=== PATIENT | female | born 1940 | race Caucasian/White ===

== ENCOUNTER 2019-11-17 06:30 | Inpatient (IN) | payer OTHER ==
[2019-11-12 10:18] VITALS: BMI 28.3
[~2019-11-17 06:30] MED LIST: CEFAZOLIN 2 GM in DEXTROSE 5%-WATER - 50 ML IVPB ONE; TRANEXAMIC ACID 1000 MG/10 ML VIAL IVPUSH ONE; VANCOMYCIN 1,000 MG in DEXTROSE 5%-WATER - 250 ML IVPB ONE
[2019-11-17] MEDS ORDERED: BUPIVACAINE LIPOSOME/PF (EXPAREL) 266 MG/20 ML VIAL ONE (07:02)
[2019-11-17] MEDS ORDERED: MIDAZOLAM HCL 2 MG/2 ML SINGLE DOSE VIAL ONE ×2 (07:02→07:39)
[2019-11-17] MEDS ORDERED: SODIUM CHLORIDE 0.9% P/F 10 ML VIAL IJ ONE (07:02)
--- NOTE | 2019-11-17 07:31 | HP ---
History & Physical Update - History History: No Change - Physical Physical: No Change - Assessment Assessment: No Change - Plan Plan: No Change (no changes since visit on 11/03/19)
[2019-11-17] MEDS ORDERED: DEXAMETHASONE SOD PHOSPHATE 4 MG/1 ML VIAL ONE (07:36)
[2019-11-17] MEDS ORDERED: ceFAZolin SODIUM 1 GM VIAL ONE ×2 (07:36→10:18)
[2019-11-17] MEDS ORDERED: ONDANSETRON 4 MG/2 ML VIAL ONE (07:36)
[2019-11-17] MEDS ORDERED: PROPOFOL 20 ML ONE ×3 (07:37→10:17)
[2019-11-17] MEDS ORDERED: VANCOMYCIN 1,000 MG VIAL (RESTRICTED TO ID ONLY) ONE (08:36)
[2019-11-17] MEDS ORDERED: TRANEXAMIC ACID 1000 MG/10 ML VIAL ONE (10:18)
[2019-11-17] MEDS ORDERED: BENZOIN/ALOE VERA/STORAX/TOLU 58 ML BOTTLE ONE (10:20)
[2019-11-17] MEDS ORDERED: MAGNESIUM HYDROX 2400MG/30ML ORAL SUSPENSION 30 ML CUP PO PRN (11:27)
[2019-11-17] MEDS ORDERED: MAG HYDROX/AL HYDROX/SIMETH 30 ML UNIT-DOSE CUP PO PRN (11:27)
[2019-11-17] MEDS ORDERED: ONDANSETRON 4 MG/2 ML VIAL IVPUSH PRN (11:27)
[2019-11-17] MEDS ORDERED: LACTATED RINGERS SOLUTION 1,000 ML IV SCH (11:30)
--- NOTE | 2019-11-17 11:32 | PN ---
Progress Note (short form) - Note Progress Note: 79F s/p LEFT total knee replacement POD #0. -Pain control: per anaesthesia team. -DVT PPx: -Chemical: ASA 81mg PO BID x 6 weeks. -Mechanical: ELBA's, SCD's. -Incentive spirometry q15 min. -PT/OT/Rehab, OOB. -WBAT LLE. -Post-op Ancef x 3 doses. -f/u post-op TOV: 8 hours max. -f/u AM labs. -Diet as tolerated. -Care per medical hospitalist team. -Discharge planning: f/u [facility] [place] [facility] 11/26/2019; call for appointment . -Will follow. Freddy Najera MD (Orthopaedic Surgery).
--- NOTE | 2019-11-17 11:34 | OP ---
Operative Note - Note: Operative Date: 11/17/19 Pre-Operative Diagnosis: Left knee DJD Operation: Left TKA Implants: Lily Triathlon. Femur - 2. Tibia - 3. Poly - 19mm, TS. Patella - 27mm, symmetric Post-Operative Diagnosis: Same as Pre-op Surgeon: Freddy Najera Melangeur Operator: Juan J Najera Anesthesiologist/SYSTEMS TEST ANALYST: Eladia El Anesthesia: Spinal Specimens Removed: Bone, soft tissue Estimated Blood Loss (mls): 0 Drains & Tubes with Location: 1 x deep HemoVac Fluid Volume Replaced (mls): 1,800 (Crystalloid) Operative Report Dictated: Yes
[2019-11-17] MEDS ORDERED: ACETAMINOPHEN 325 MG TABLET (FP) PO ONE ×2 (12:10→12:52)
[2019-11-17] MEDS ORDERED: ACETAMINOPHEN 325 MG TABLET (FP) ONE (12:29)
--- NOTE | 2019-11-17 14:12 | OP ---
DATE OF OPERATION: 11/17/2019 SURGEON: Freddy Najera MD ALLIGATOR HUNTER: Juan J Najera MD, MELINA Bell PREOPERATIVE DIAGNOSIS: Tricompartment osteoarthritis, left knee. POSTOPERATIVE DIAGNOSIS: Tricompartment osteoarthritis, left knee. OPERATION PERFORMED: Left posterior stabilized cemented total knee arthroplasty ([place]). ([id number]) ANESTHESIA: Conscious sedation with general anesthesia and peripheral nerve block. PROCEDURE: Patient correctly identified. Brought to the operating room. Left lower extremity was prepped, draped in the routine manner with Betadine scrub solution , wiped off with alcohol, DuraPrep applied. A free drape applied. Time-out was called. Preoperative evaluation of deformity was that of full extension and 10-degree fixed varus deformity. Imaging was available for intraoperative evaluation. Time-out was called. Midline incision was utilized. A subvastus approach was utilized as follows: Through the skin incision and subcutaneous tissue, the dissection was taken down to the epimysium of the vastus medialis as well as the medial retinacular tissues. The incision along the medial aspect of the tibial surface. At the inferior pole of the patella, this was curved posteriorly medially to be parallel to the inferior border of vastus medialis and then the epimysium on vastus medialis was dissected off the muscle all the way down to linea aspera and to Peng canal where the muscle was gently lifted off the intramuscular septum appropriately. A plane was developed between the vastus muscles and bone bed and a blunt Holmann placed into position. This was outside of the suprapatellar pouch. The suprapatellar pouch was incised to facilitate lateralization of the patella and then the entire suprapatellar pouch soft tissue envelope was removed this using a unipolar Bovie. The knee was flexed to reveal severe tricompartmental osteoarthritis. The appropriate jig cuts were made with a [employer] instrumentation namely tibia to neutral, and patient is a size 3 tibial component. The femur initial opening drill was made just anterior to the insertion footprint of the posterior cruciate ligament. The sword was entered with the appropriate distal cutting device. The cut was made to 4 degrees of varus and 3 of external rotation. Onto this, the measurements for the actual femoral components were size 2, and appropriate jig cuts enabled the appropriate chamfer and posterior and anterior bony cuts to be made appropriately. The trial component was seated after cutting out the box with the appropriate box cutting device. The femoral lug holes were drilled. Once this had been performed, a trial tibia was placed with a size 16 because of the gap, a size 13 and then size 17 polyethylene liner but showed mild recurvatum of the knee indicating the largest space was ultimately used, but this gave adequate confidence to us that the bony cuts were straight and the kinematics completely well maintained, that is, full extension, full flexion, and no dislocatability. The popliteus tendon because of subluxation laterally of the tibia was released. Once it had been performed , the bone beds were thoroughly lavaged. The tibial bone bed had been repaired with the drills and broach device for the appropriate implant and their sizes. Cementing was in 1 stage once the bone bed was thoroughly lavaged and dried. This was with regular cement, and the cementless components inserted. The patellar button was a size 27. The femur was a size 2. The tibia was a size 3, and the polyethylene liner for a TS posterior stabilized implant was a size 19. The patella cuts prior to the insertion of the actual patella, the cut was made along Whitesides line from the quadriceps tendon and the lug holes drilled. All extraneous cement was removed. The tissues were thoroughly lavaged, and the wound was closed as well as parapatellar incision with No. 1 Vicryl, subcutaneous 1 Vicryl, skin 3-0 Monocryl with Steri-Strips. Drainage 1/8 inch Hemovac brought out laterally and placed in the area of the subvastus bed. MD LESLIE Lopez/[id number] GABRIELA
--- NOTE | 2019-11-17 14:18 | HP ---
HISTORY OF PRESENT ILLNESS: 79 year-old with a PMH significant for HTN, HLD, Type II NIDDM, GERD, and left knee DJD s/p left total knee arthroplasty today with Dr. Najera. Recent Travel: No PAST MEDICAL HISTORY: Hypertension Hyperlipidemia Type II NIDDM GERD PAST SURGICAL HISTORY: Dropped bladder repair Inguinal hernia repair Cataract surgery Social History: lives in [place] with family Smoking: never Alcohol: no Drugs: no Family history: non-contributory Allergies No Known Allergies Allergy (Verified 11/17/19 06:41) HOME MEDICATIONS: Home Medications Medication Instructions Recorded Atorvastatin Ca [Lipitor] 20 mg PO HS 11/12/19 Docusate Sodium [Colace] 100 mg PO DAILY 11/12/19 Losartan Potassium 100 mg PO DAILY 11/12/19 Magnesium Oxide [Magnesium] 400 mg PO DAILY 11/12/19 Metformin HCl [Glucophage] 500 mg PO DAILY 11/12/19 Metoprolol Succinate 25 mg PO DAILY 11/12/19 Ranitidine HCl 150 mg PO DAILY 11/12/19 REVIEW OF SYSTEMS CONSTITUTIONAL: Absent: fever, chills, diaphoresis, generalized weakness, malaise, loss of appetite, weight change HEENT: Absent: rhinorrhea, nasal congestion, throat pain, throat swelling, difficulty swallowing, mouth swelling, ear pain, eye pain, visual changes CARDIOVASCULAR: Absent: chest pain, syncope, palpitations, irregular heart rate, lightheadedness , peripheral edema RESPIRATORY: Absent: cough, shortness of breath, dyspnea with exertion, orthopnea, wheezing, stridor, hemoptysis GASTROINTESTINAL: Absent: abdominal pain, abdominal distension, nausea, vomiting, diarrhea, constipation, melena, hematochezia GENITOURINARY: Absent: dysuria, frequency, urgency, hesitancy, hematuria, flank pain, genital pain MUSCULOSKELETAL: Absent: myalgia, arthralgia, joint swelling, back pain, neck pain SKIN: Absent: rash, itching, pallor HEMATOLOGIC/IMMUNOLOGIC: Absent: easy bleeding, easy bruising, lymphadenopathy, frequent infections ENDOCRINE: Absent: unexplained weight gain, unexplained weight loss, heat intolerance, cold intolerance NEUROLOGIC: Absent: headache, focal weakness or paresthesias, dizziness, unsteady gait, seizure, mental status changes, bladder or bowel incontinence PSYCHIATRIC: Absent: anxiety, depression, suicidal or homicidal ideation, hallucinations. PHYSICAL EXAMINATION Vital Signs - 24 hr 1211/17/19 11/17/19 06:20 11:20 11:25 Temperature 98.5 F 98.1 F Pulse Rate 84 72 76 Respiratory 20 16 16 Rate Blood Pressure 127/87 110/54 L 119/58 L O2 Sat by Pulse 97 96 96 Oximetry (%) 11/17/19 11/17/19 11/17/19 11:30 11:35 11:50 Temperature Pulse Rate 67 71 66 Respiratory 13 12 14 Rate Blood Pressure 116/51 L 105/53 L 116/51 L O2 Sat by Pulse 100 100 100 Oximetry (%) 11/17/19 11/17/19 11/17/19 12:05 12:20 12:30 Temperature Pulse Rate 64 65 65 Respiratory 14 16 16 Rate Blood Pressure 109/56 L 118/52 L 118/52 L O2 Sat by Pulse 100 100 100 Oximetry (%) 11/17/19 14:00 Temperature 97.6 F Pulse Rate 61 Respiratory 16 Rate Blood Pressure 119/51 L O2 Sat by Pulse 100 Oximetry (%) GENERAL: Awake, alert, and fully oriented, in no acute distress. HEAD: Normal with no signs of trauma. LUNGS: Breath sounds equal, clear to auscultation bilaterally. No wheezes, and no crackles. No accessory muscle use. HEART: Regular rate and rhythm, S1 and S2 ABDOMEN: Soft, nontender, not distended UPPER EXTREMITIES: 2+ pulses, warm, well-perfused. No cyanosis. No clubbing. No peripheral edema. LLE: Surgical dressings c/d/i, ice pack, SCDs, Hemovac drain with sanguinous drainage; flex/extend toes, sensory intact NEUROLOGICAL: Cranial nerves II-XII intact. Normal speech. Laboratory Results - last 24 hr 11/17/19 11/17/19 06:33 11:31 POC Glucometer 96 112 Pre op BUN 20 Cr 0.8 Hgb 12.7 Intra op EBL 0mL LR 1500mLs ASSESSMENT/PLAN 79 year-old with a PMH significant for HTN, HLD, Type II NIDDM, GERD, and left knee DJD s/p left total knee arthroplasty today with Dr. Najera. Left total knee arthroplasty --POD #0 --perioperative antibiotics per surgery --pain management per surgery --ASA 81mg BID --protonix --bowel regimen --incentive spirometry --Hemovac drain, monitor output Hypertension --BP stable --continue losartan Hyperlipidemia --continue atorvastatin Type II NIDDM --Novolog sliding scale GERD --protonix FEN Fluids: LR@100mL/hr Electrolytes: replete as indicated Nutrition: regular diet DVT prophylaxis: OOB, ambulation, SCDs, TEDs, ASA 81mg BID Physical therapy Dispo: continues to require inpatient care. Full code. Visit type - Emergency Visit Emergency Visit: No - New Patient This patient is new to me today: Yes Date on this admission: 11/19/19 - Critical Care Critical Care patient: No
[2019-11-17] MEDS ORDERED: INSULIN (NOVOLOG) ASPART 100 UNITS/ML 10ML VIAL SQ SCH (16:30)
[2019-11-17] MEDS: CEFAZOLIN 1 GM/D5W 1 GM/50 ML BAG IVPB SCH ×2 (17:01→22:21)
[2019-11-17] MEDS ORDERED: INSULIN SLIDING SCALE (NOVOLOG) 1 VIAL SQ SCH (17:47)
[2019-11-17] MEDS: oxyCODONE HCL 5 MG TABLET PO PRN ×2 (18:39→21:54)
[2019-11-17] MEDS: ACETAMINOPHEN 325 MG TABLET (FP) PO SCH (21:54)
[2019-11-17] MEDS: ASPIRIN COATED 81 MG TABLET.EC PO SCH (21:55)
[2019-11-17] MEDS: INSULIN SLIDING SCALE (NOVOLOG) 1 VIAL SQ SCH (21:55)
[2019-11-17] MEDS: SENNOSIDES/DOCUSATE COMBO (SENNA PLUS) TABLET (UD) PO SCH (21:55)
[2019-11-18] MEDS: oxyCODONE HCL 5 MG TABLET PO PRN ×3 (01:28→22:50)
[2019-11-18] MEDS: ACETAMINOPHEN 325 MG TABLET (FP) PO SCH ×4 (01:29→20:15)
[2019-11-18] MEDS: CEFAZOLIN 1 GM/D5W 1 GM/50 ML BAG IVPB SCH (04:04)
[2019-11-18] MEDS: INSULIN SLIDING SCALE (NOVOLOG) 1 VIAL SQ SCH ×3 (06:31→21:54)
[2019-11-18] MEDS ORDERED: metFORMIN HCL 500 MG TABLET (FP) PO SCH (07:00)
[2019-11-18 08:02] LABS: HEMATOCRIT 33.3 % (32.4-45.2); HEMOGLOBIN 11.2 GM/dl (10.7-15.3); MCH 30.8 pg (25.7-33.7); MCHC 33.7 g/dl (32.0-36.0); MEAN CELL VOLUME 91.2 fl (80-96); MEAN PLT VOLUME 8.2 fl (7.5-11.1); PLATELET COUNT 184 K/MM3 (134-434); RBC 3.65 M/mm3 (3.60-5.2); RDW 12.5 % (11.6-15.6); WHITE BLOOD COUNT 8.8 K/mm3 (4.0-10.8)
[2019-11-18 08:09] LABS: CALCIUM 8.2 mg/dl (8.5-10); CREATININE 0.8 mg/dl (0.55-1.3); POTASSIUM 4.5 mmol/L (3.5-5.1)
--- NOTE | 2019-11-18 09:25 | PN ---
Progress Note (short form) - Note Progress Note: 79F POD1 s/p L TKR under spinal anesthetic with peripheral nerve blocks for post operative pain relief doing well. Pt states that pain is well controlled and reports no anesthetic complications. AVSS. Motor exam intact in bilateral lower extremities. There is some mild numbness in the ipsilateral leg, likely secondary to block.
[2019-11-18] MEDS: ASPIRIN COATED 81 MG TABLET.EC PO SCH ×2 (09:50→21:51)
[2019-11-18] MEDS: MAGNESIUM OXIDE 400 MG TABLET (FP) PO SCH (09:51)
[2019-11-18] MEDS: FAMOTIDINE 20 MG TABLET PO SCH (09:51)
[2019-11-18] MEDS: PANTOPRAZOLE 40 MG TABLET PO SCH (09:51)
[2019-11-18] MEDS: SENNOSIDES/DOCUSATE COMBO (SENNA PLUS) TABLET (UD) PO SCH ×2 (09:51→21:51)
[2019-11-18] MEDS: LOSARTAN POTASSIUM 50 MG TABLET (FP) PO SCH (10:45)
--- NOTE | 2019-11-18 11:30 | PN ---
Physical Exam: SUBJECTIVE: Patient seen and examined in PT room. Son and daughter present. OBJECTIVE: Vital Signs Period Temp Pulse Resp BP Sys/[place] Pulse Ox Last 24 Hr 97.6 F-99.2 F 61-88 12-21 105-143/46-69 100-100 GENERAL: Awake, alert, and fully oriented, in no acute distress. HEAD: Normal with no signs of trauma. LUNGS: Breath sounds equal, clear to auscultation bilaterally. No wheezes, and no crackles. No accessory muscle use. HEART: Regular rate and rhythm, S1 and S2 ABDOMEN: Soft, nontender, not distended UPPER EXTREMITIES: 2+ pulses, warm, well-perfused. No cyanosis. No clubbing. No peripheral edema. LLE: Surgical dressings c/d/i, Hemovac drain with sanguinous drainage; flex/ extend toes, sensory intact NEUROLOGICAL: Cranial nerves II-XII intact. Normal speech. Laboratory Results - last 24 hr 11/17/19 11/17/19 11/18/19 11:31 21:52 06:30 WBC RBC Hgb Hct MCV MCH MCHC RDW Plt Count MPV Sodium Potassium Chloride Carbon Dioxide Anion Gap BUN Creatinine Est GFR (CKD-EPI)AfAm Est GFR (CKD-EPI)NonAf POC Glucometer 112 94 117 Random Glucose Calcium Magnesium 11/18/19 11/18/19 07:25 07:25 WBC 8.8 RBC 3.65 Hgb 11.2 Hct 33.3 MCV 91.2 MCH 30.8 MCHC 33.7 RDW 12.5 Plt Count 184 MPV 8.2 Sodium 138 Potassium 4.5 Chloride 105 Carbon Dioxide 27 Anion Gap 6 L BUN 14.0 Creatinine 0.8 Est GFR (CKD-EPI)AfAm 82.42 Est GFR (CKD-EPI)NonAf 71.11 POC Glucometer Random Glucose 139 H Calcium 8.2 L Magnesium 2.0 Active Medications Generic Name Dose Route Start Last Admin Trade Name Freq PRN Reason Stop Dose Admin Acetaminophen 650 mg 11/17/19 20:00 11/18/19 08:20 Tylenol - PO 11/20/19 19:59 650 mg Q6H SHAZIA Administration Al Hydroxide/Mg Hydroxide 30 ml 11/17/19 11:27 Mylanta Oral Suspension - PO Q4H PRN DYSPEPSIA Aspirin 81 mg 11/17/19 22:00 11/18/19 09:50 Ecotrin - PO 81 mg BID SHAZIA Administration Atorvastatin Calcium 20 mg 11/18/19 22:00 Lipitor - PO HS SHAZIA Famotidine 20 mg 11/18/19 10:00 11/18/19 09:51 Pepcid - PO 20 mg DAILY SHAZIA Administration Insulin Aspart 1 vial 11/17/19 22:00 11/18/19 06:31 Novolog Vial Sliding Scale - SQ Not Given ACHS [facility] Protocol Losartan Potassium 100 mg 11/18/19 10:00 Cozaar - PO DAILY SHAIZA Magnesium Hydroxide 30 ml 11/17/19 11:27 Milk Of Magnesia - PO PRN PRN CONSTIPATION Magnesium Oxide 400 mg 11/18/19 10:00 11/18/19 09:51 Mag-Ox - PO 400 mg DAILY [facility] Administration Metoprolol Succinate 25 mg 11/18/19 10:00 Toprol Xl - PO DAILY [facility] Ondansetron HCl 4 mg 11/17/19 11:27 Zofran Injection IVPUSH Q6H PRN NAUSEA Oxycodone HCl 5 mg 11/17/19 14:08 11/18/19 06:37 Roxicodone - PO 5 mg Q3H PRN Administration PAIN LEVEL 1-5 Oxycodone HCl 10 mg 11/17/19 14:08 Roxicodone - PO Q3H PRN PAIN LEVEL 6-10 Pantoprazole Sodium 40 mg 11/18/19 10:00 11/18/19 09:51 Protonix - PO 40 mg DAILY [facility] Administration Senna/Docusate Sodium 2 tablet 11/17/19 22:00 11/18/19 09:51 Pericolace - PO 2 tablet BID [facility] Administration ASSESSMENT/PLAN 79 year-old with a PMH significant for HTN, HLD, Type II NIDDM, GERD, and left knee DJD s/p left total knee arthroplasty today with Dr. Najera. Left total knee arthroplasty --POD #1 --perioperative antibiotics complete --pain well-managed --ASA 81mg BID --protonix --bowel regimen --incentive spirometry --Hemovac drain, monitor output Hypertension --BP stable --continue losartan Hyperlipidemia --continue atorvastatin Type II NIDDM --Novolog sliding scale GERD --protonix FEN Fluids: PO intake adequate Electrolytes: replete as indicated Nutrition: diabetic diet DVT prophylaxis: OOB, ambulation, SCDs, TEDs, ASA 81mg BID Physical therapy Dispo: continues to require inpatient care. Full code. Visit type - Emergency Visit Emergency Visit: No - New Patient This patient is new to me today: No - Critical Care Critical Care patient: No
--- NOTE | 2019-11-18 13:34 | PN ---
Progress Note (short form) - Note Progress Note: POD#1 Pt without any complaints, had PT today and ambulated in the hallways. No CP or SOB. VOiding without difficulty. Vital Signs Period Temp Pulse Resp BP Sys/[place] Pulse Ox Last 24 Hr 97.6 F-99.2 F 61-88 16-21 117-143/46-69 100-100 Hemovac-130 serosangrenous GEN: A&oriented, OOB to chair CV; RRR Lungs; CTA b/l Left knee; dressing c/d/i. dorsi/plantar flexion b/l. +2 dp pulses b/l. b/l calf soft, no swelling or tenderness. ELBA/SCDS in place and working CBC, BMP // 07:25 12// 07:25 Laboratory Tests /18/ 12/18/19 12/18/19 06:33 11:31 21:52 POC Glucometer 96 112 94 // 06:30 POC Glucometer 117 A/p: 79 yo female s/p Left total knee replacement, POD#1 Doing well clinically, resume all oral medications Continue oral pain medications to control pain DVT ppx with ambulation, ELBA/SCDs/Aspirin 81 mg BID Diet as tolerated D/w Dr. Najera
[2019-11-18] MEDS: ATORVASTATIN CA 20 MG TABLET (FP) PO SCH (21:51)
[2019-11-19] MEDS: ACETAMINOPHEN 325 MG TABLET (FP) PO SCH ×4 (01:57→20:46)
[2019-11-19] MEDS: oxyCODONE HCL 5 MG TABLET PO PRN ×4 (06:36→21:42)
--- NOTE | 2019-11-19 07:35 | DS ---
Physical Exam: SUBJECTIVE: Patient seen and examined OBJECTIVE: Vital Signs Period Temp Pulse Resp BP Sys/[place] Pulse Ox Last 24 Hr 97.6 F-99.3 F 85-98 16-18 106-128/44-55 96-100 PHYSICAL EXAM GENERAL: The patient is awake, alert, and fully oriented, in no acute distress. HEAD: Normal with no signs of trauma. EYES: PERRL, extraocular movements intact, sclera anicteric, conjunctiva clear. ENT: Ears normal, nares patent, oropharynx clear without exudates, moist mucous membranes. NECK: Trachea midline, full range of motion, supple. LUNGS: Breath sounds equal, clear to auscultation bilaterally, no wheezes, no crackles, no accessory muscle use. HEART: Regular rate and rhythm, S1, S2 without murmur, rub or gallop. ABDOMEN: Soft, nontender, nondistended, normoactive bowel sounds, no guarding, no rebound, no hepatosplenomegaly, no masses. EXTREMITIES: 2+ pulses, warm, well-perfused, no edema. NEUROLOGICAL: Cranial nerves II through XII grossly intact. Normal speech, gait not observed. PSYCH: Normal mood, normal affect. SKIN: Warm, dry, normal turgor, no rashes or lesions noted. LABS Laboratory Results - last 24 hr 11/18/19 11/18/19 11/18/19 07:25 07:25 16:24 WBC 8.8 RBC 3.65 Hgb 11.2 Hct 33.3 MCV 91.2 MCH 30.8 MCHC 33.7 RDW 12.5 Plt Count 184 MPV 8.2 Sodium 138 Potassium 4.5 Chloride 105 Carbon Dioxide 27 Anion Gap 6 L BUN 14.0 Creatinine 0.8 Est GFR (CKD-EPI)AfAm 82.42 Est GFR (CKD-EPI)NonAf 71.11 POC Glucometer 164 Random Glucose 139 H Calcium 8.2 L Magnesium 2.0 11/18/19 11/19/19 21:53 06:50 WBC RBC Hgb Hct MCV MCH MCHC RDW Plt Count MPV Sodium Potassium Chloride Carbon Dioxide Anion Gap BUN Creatinine Est GFR (CKD-EPI)AfAm Est GFR (CKD-EPI)NonAf POC Glucometer 174 117 Random Glucose Calcium Magnesium HOSPITAL COURSE: Date of Admission:11/18/19 Date of Discharge: 12/20/19 Discharge Summary Reason For Visit: BILATERAL PRIMARY OSTEOARTHRITIS OF KNEE Condition: Good - Instructions Diet, Activity, Other Instructions: Dr. Najera Discharge Instructions for Knee Replacement Post Operative Instructions Physical activity Physical Therapist will come to your home for the first 5 days. You will be set up with outpatient PT at your first post-operative visit. Use assistive devices for ambulation at all times. Weight bearing as tolerated on your surgical side. Do not put pillow under knee. May put pillow under heel. Wound care Leave your surgical dressing in place. Do not change the dressing until seen by your surgeon in the office. No baths or showers. Do not submerge your incision. Do not apply any ointments or lotions to your incision. Please call the office if your dressing is soiled/dirty or is falling off. Apply Graduated Compression Stockings (TEDS) to both lower extremities - remove daily for hygiene ONLY. Diet There are no dietary restrictions. Eat healthy, high-fiber foods. Drink 6 to 8 glasses of liquid each day. This will assist in keeping your bowels are regular. Pain management Any pain prescription medication ordered should be taken as prescribed for moderate to severe pain. Do not take additional Tylenol while taking Percocet. Take Aspirin 81 mg two times a day for a total of 6 weeks to prevent blood clots. ISTOP: [id number] Call Dr. Najera for any of the following: Severe pain not relieved by medication Fever of 101 or higher Excessive bleeding or drainage on dressing Inability to urinate If you experience chest pain or shortness of breath, please seek emergency care immediately. Please call the office at to confirm your post-op appointment for the week following surgery. - Home Medications Comprehensive Discharge Medication List: Ambulatory Orders Atorvastatin Ca [Lipitor] 20 mg PO HS 11/12/19 Docusate Sodium [Colace] 100 mg PO DAILY 11/12/19 Losartan Potassium 100 mg PO DAILY 11/12/19 Magnesium Oxide [Magnesium] 400 mg PO DAILY 11/12/19 Metformin HCl [Glucophage] 500 mg PO DAILY 11/12/19 Metoprolol Succinate 25 mg PO DAILY 11/12/19 Ranitidine HCl 150 mg PO DAILY 11/12/19
--- NOTE | 2019-11-19 08:18 | PN ---
Progress Note (short form) - Note Progress Note: POD#2 Pt without any complaints, family at bedside. No complaints Vital Signs Period Temp Pulse Resp BP Sys/[place] Pulse Ox Last 24 Hr 97.6 F-99.3 F 85-98 16-18 106-128/44-55 96-100 Hemovac-195 dark appearing blood/slight serosangrenous GEN: A&oriented, OOB to chair Left knee; dressing c/d/i. dorsi/plantar flexion b/l. b/l calf soft, no swelling or tenderness. ELBA/SCDS in place and working CBC, BMP 12/20/19 07:05 12/19/19 07:25 A/p: 79 yo female s/p Left total knee replacement, POD#2 Doing well clinically, resume all oral medications Continue oral pain medications to control pain DVT ppx with ambulation, ELBA/SCDs/Aspirin 81 mg BID Diet as tolerated D/w Dr. Najera, continue to monitor drain outpt today and if decreasing pull drain after PT
[2019-11-19 08:28] LABS: HEMATOCRIT 32.5 % (32.4-45.2); HEMOGLOBIN 11.2 GM/dl (10.7-15.3); MCH 31.4 pg (25.7-33.7); MCHC 34.5 g/dl (32.0-36.0); MEAN PLT VOLUME 8.2 fl (7.5-11.1); PLATELET COUNT 184 K/MM3 (134-434); RBC 3.57 M/mm3 (3.60-5.2); RDW 12.8 % (11.6-15.6); WHITE BLOOD COUNT 10.5 K/mm3 (4.0-10.8)
[2019-11-19] MEDS: metoPROLOL SUCCINATE 25 MG TAB.SR.24H (FP) PO SCH (09:59)
[2019-11-19] MEDS: ASPIRIN COATED 81 MG TABLET.EC PO SCH ×2 (10:00→21:40)
[2019-11-19] MEDS: LOSARTAN POTASSIUM 50 MG TABLET (FP) PO SCH (10:00)
[2019-11-19] MEDS: PANTOPRAZOLE 40 MG TABLET PO SCH (10:05)
[2019-11-19] MEDS: SENNOSIDES/DOCUSATE COMBO (SENNA PLUS) TABLET (UD) PO SCH ×2 (10:05→21:40)
[2019-11-19] MEDS: FAMOTIDINE 20 MG TABLET PO SCH (10:05)
[2019-11-19] MEDS: MAGNESIUM OXIDE 400 MG TABLET (FP) PO SCH (10:05)
[2019-11-19] MEDS: INSULIN SLIDING SCALE (NOVOLOG) 1 VIAL SQ SCH ×3 (11:05→21:39)
--- NOTE | 2019-11-19 11:41 | DS ---
"Documentation entered by Lidia Alonso SCRIBE, acting as scribe for Mary Ramos NP. Physical Exam: SUBJECTIVE: Patient seen and examined in PT room. Daughter present. OBJECTIVE: Vital Signs Period Temp Pulse Resp BP Sys/[place] Pulse Ox Last 24 Hr 97.6 F-99.3 F 85-98 16-18 106-128/44-55 96-100 PHYSICAL EXAM GENERAL: Awake, alert, and fully oriented, in no acute distress. HEAD: Normal with no signs of trauma. LUNGS: Breath sounds equal, clear to auscultation bilaterally. No wheezes, and no crackles. No accessory muscle use. HEART: Regular rate and rhythm, S1 and S2 ABDOMEN: Soft, nontender, not distended UPPER EXTREMITIES: 2+ pulses, warm, well-perfused. No cyanosis. No clubbing. No peripheral edema. LLE: Surgical dressings c/d/i, Hemovac drain with sanguinous drainage; flex/ extend toes, sensory intact NEUROLOGICAL: Cranial nerves II-XII intact. Normal speech. LABS Laboratory Results - last 24 hr 11/18/19 11/18/19 11/18/19 07:25 07:25 16:24 WBC 8.8 RBC 3.65 Hgb 11.2 Hct 33.3 MCV 91.2 MCH 30.8 MCHC 33.7 RDW 12.5 Plt Count 184 MPV 8.2 Sodium 138 Potassium 4.5 Chloride 105 Carbon Dioxide 27 Anion Gap 6 L BUN 14.0 Creatinine 0.8 Est GFR (CKD-EPI)AfAm 82.42 Est GFR (CKD-EPI)NonAf 71.11 POC Glucometer 164 Random Glucose 139 H Calcium 8.2 L Magnesium 2.0 11/18/19 11/19/19 21:53 06:50 WBC RBC Hgb Hct MCV MCH MCHC RDW Plt Count MPV Sodium Potassium Chloride Carbon Dioxide Anion Gap BUN Creatinine Est GFR (CKD-EPI)AfAm Est GFR (CKD-EPI)NonAf POC Glucometer 174 117 Random Glucose Calcium Magnesium HOSPITAL COURSE: Date of Admission:11/18/19 Date of Discharge: 11/19/19 Pre-Hospital Course: 79 year-old with a PMH significant for HTN, HLD, Type II NIDDM, GERD, and left knee DJD s/p left total knee arthroplasty with Dr. Najera. Subsequent Hospital Course: Left total knee arthroplasty --POD #2 --perioperative antibiotics complete --pain well-managed with PO meds --ASA 81mg BID x 6 weeks Hypertension --BP stable --continued losartan Hyperlipidemia --continued atorvastatin Type II NIDDM --Novolog sliding scale GERD --protonix Minutes to complete discharge: 35 Discharge Summary Problems reviewed: Yes Reason For Visit: BILATERAL PRIMARY OSTEOARTHRITIS OF KNEE Condition: Good - Instructions Diet, Activity, Other Instructions: Dr. Najera Discharge Instructions for Knee Replacement Post Operative Instructions Physical activity Physical Therapist will come to your home for the first 5 days. You will be set up with outpatient PT at your first post-operative visit. Use assistive devices for ambulation at all times. Weight bearing as tolerated on your surgical side. Do not put pillow under knee. May put pillow under heel. Wound care Leave your surgical dressing in place. Do not change the dressing until seen by your surgeon in the office. No baths or showers. Do not submerge your incision. Do not apply any ointments or lotions to your incision. Please call the office if your dressing is soiled/dirty or is falling off. Apply Graduated Compression Stockings (TEDS) to both lower extremities - remove daily for hygiene ONLY. Diet There are no dietary restrictions. Eat healthy, high-fiber foods. Drink 6 to 8 glasses of liquid each day. This will assist in keeping your bowels are regular. Pain management Any pain prescription medication ordered should be taken as prescribed for moderate to severe pain. Do not take additional Tylenol while taking Percocet. Take Aspirin 81 mg two times a day for a total of 6 weeks to prevent blood clots. ISTOP: [id number] Call Dr. Najera for any of the following: Severe pain not relieved by medication Fever of 101 or higher Excessive bleeding or drainage on dressing Inability to urinate If you experience chest pain or shortness of breath, please seek emergency care immediately. Please call the office at to confirm your post-op appointment for the week following surgery. This report was requested by: Anita Loomis | Reference #: [id number] - Home Medications Comprehensive Discharge Medication List: Ambulatory Orders Atorvastatin Ca [Lipitor] 20 mg PO HS 11/12/19 Docusate Sodium [Colace] 100 mg PO DAILY 11/12/19 Losartan Potassium 100 mg PO DAILY 11/12/19 Magnesium Oxide [Magnesium] 400 mg PO DAILY 11/12/19 Metformin HCl [Glucophage] 500 mg PO DAILY 11/12/19 Metoprolol Succinate 25 mg PO DAILY 11/12/19 Ranitidine HCl 150 mg PO DAILY 11/12/19 This patient is new to me today: No Emergency Visit: No Critical Care patient: No - Discharge Referral Referred to [facility] No Mary Ramos NP: This documentation has been prepared by the Gavin rodriguez Maria, SCRIBE, under my direction and personally reviewed by me in its entirety. I confirm that the documentation accurately reflects all work, treatment, procedures, and medical decision making performed by me."
[2019-11-19] MEDS: ATORVASTATIN CA 20 MG TABLET (FP) PO SCH (21:41)
[2019-11-19 22:48] VITALS: TEMP 98
[2019-11-20] MEDS: ACETAMINOPHEN 325 MG TABLET (FP) PO SCH ×2 (06:44→08:05)
[2019-11-20 08:01] VITALS: BP 113/60; PULSE 72
[2019-11-20] MEDS: MAGNESIUM OXIDE 400 MG TABLET (FP) PO SCH (09:17)
[2019-11-20] MEDS: ASPIRIN COATED 81 MG TABLET.EC PO SCH (09:17)
[2019-11-20] MEDS: SENNOSIDES/DOCUSATE COMBO (SENNA PLUS) TABLET (UD) PO SCH (09:18)
[2019-11-20] MEDS: FAMOTIDINE 20 MG TABLET PO SCH (09:18)
[2019-11-20] MEDS: metoPROLOL SUCCINATE 25 MG TAB.SR.24H (FP) PO SCH (09:20)
[2019-11-20] MEDS: PANTOPRAZOLE 40 MG TABLET PO SCH (10:10)
[2019-11-20] MEDS: LOSARTAN POTASSIUM 50 MG TABLET (FP) PO SCH (10:15)
--- NOTE | 2019-11-20 12:40 | PN ---
Physical Exam: SUBJECTIVE: Patient seen and examined at bedside, reports feeling better, no complains. OBJECTIVE: Vital Signs Period Temp Pulse Resp BP Sys/[place] Pulse Ox Last 24 Hr 97.9 F-98.0 F 72-88 18-18 104-120/37-60 98-98 GENERAL: The patient is awake, alert, and fully oriented, in no acute distress. HEAD: Normal with no signs of trauma. EYES: PERRL, extraocular movements intact, sclera anicteric, conjunctiva clear. No ptosis. ENT: Ears normal, nares patent, oropharynx clear without exudates, moist mucous membranes. NECK: Trachea midline, full range of motion, supple. LUNGS: Breath sounds equal, clear to auscultation bilaterally, no wheezes, no crackles, no accessory muscle use. HEART: Regular rate and rhythm, S1, S2 without murmur, rub or gallop. ABDOMEN: Soft, nontender, nondistended, normoactive bowel sounds, no guarding, no rebound, no hepatosplenomegaly, no masses. EXTREMITIES: 2+ pulses, warm, well-perfused, no edema. left knee dsg intact and drain in place NEUROLOGICAL: Cranial nerves II through XII grossly intact. Normal speech, gait not observed. PSYCH: Normal mood, normal affect. SKIN: Warm, dry, normal turgor, no rashes or lesions noted Active Medications Generic Name Dose Route Start Last Admin Trade Name Freq PRN Reason Stop Dose Admin Acetaminophen 650 mg 11/17/19 20:00 11/20/19 08:05 Tylenol - PO 11/20/19 19:59 650 mg Q6H SHAZIA Administration Al Hydroxide/Mg Hydroxide 30 ml 11/17/19 11:27 Mylanta Oral Suspension - PO Q4H PRN DYSPEPSIA Aspirin 81 mg 11/17/19 22:00 11/20/19 09:17 Ecotrin - PO 81 mg BID SHAZIA Administration Atorvastatin Calcium 20 mg 11/18/19 22:00 11/19/19 21:41 Lipitor - PO 20 mg HS SHAZIA Administration Famotidine 20 mg 11/18/19 10:00 11/20/19 09:18 Pepcid - PO 20 mg DAILY SHAZIA Administration Insulin Aspart 1 vial 11/17/19 22:00 11/19/19 21:39 Novolog Vial Sliding Scale - SQ Not Given ACHS SHAZIA Protocol Losartan Potassium 100 mg 11/18/19 10:00 11/20/19 10:15 Cozaar - PO 100 mg DAILY SHAZIA Administration Magnesium Hydroxide 30 ml 11/17/19 11:27 Milk Of Magnesia - PO PRN PRN CONSTIPATION Magnesium Oxide 400 mg 11/18/19 10:00 11/20/19 09:17 Mag-Ox - PO 400 mg DAILY SHAZIA Administration Metoprolol Succinate 25 mg 11/18/19 10:00 11/20/19 09:20 Toprol Xl - PO 25 mg DAILY SHAZIA Administration Ondansetron HCl 4 mg 11/17/19 11:27 Zofran Injection IVPUSH Q6H PRN NAUSEA Oxycodone HCl 5 mg 11/17/19 14:08 11/19/19 10:10 Roxicodone - PO 5 mg Q3H PRN Administration PAIN LEVEL 1-5 Oxycodone HCl 10 mg 11/17/19 14:08 11/19/19 21:42 Roxicodone - PO 10 mg Q3H PRN Administration PAIN LEVEL 6-10 Pantoprazole Sodium 40 mg 11/18/19 10:00 11/20/19 10:10 Protonix - PO 40 mg DAILY SHAZIA Administration Senna/Docusate Sodium 2 tablet 11/17/19 22:00 11/20/19 09:18 Pericolace - PO 2 tablet BID SHAZIA Administration ASSESSMENT/PLAN: 79 year-old with a PMH significant for HTN, HLD, Type II NIDDM, GERD, and left knee DJD s/p left total knee arthroplasty today with Dr. Najera. *Left total knee arthroplasty -POD #3 - management per sx - pain control -ASA 81mg BID -protonix -bowel regimen -incentive spirometry -Hemovac drain, monitor output *Hypertension-BP stable - will continue losartan *Hyperlipidemia -continue atorvastatin *Type II NIDDM -Novolog sliding scale *GERD -protonix FEN Fluids: PO intake adequate Electrolytes: replete as indicated Nutrition: diabetic diet DVT prophylaxis: OOB, ambulation, SCDs, TEDs, ASA 81mg BID Physical therapy following Will Dc once cleared by ortho Visit type - Emergency Visit Emergency Visit: Yes ED Registration Date: 11/18/19 Care time: The patient presented to the Emergency Department on the above date and was hospitalized for further evaluation of their emergent condition. - New Patient This patient is new to me today: Yes Date on this admission: 11/20/19 - Critical Care Critical Care patient: No
--- NOTE | 2019-11-21 08:02 | PN ---
Progress Note (short form) - Note Progress Note: 79F s/p LEFT total knee replacement POD #3. Pain well controlled. No acute events overnight. Pt. denies overnight history of headaches, chest pain, shortness of breath, nausea, vomiting, chills, & sweats. (+) Voiding; (+) Flatus; (-) BM. Tolerating diet. (+) Walked in hallway. All labs and vitals reviewed. PE: AAO x 3, NAD. L-Knee: Dressing C/D/I. Drain intact & in place; <30cc output/shift; drain removed now. NVI distally. 79F s/p LEFT total knee replacement POD #3. -Pain control. -DVT PPx: -Chemical: ASA 81mg PO BID x 6 weeks. -Mechanical: ELBA's, SCD's. -Incentive spirometry q15 min. -PT/OT/Rehab, OOB. -WBAT LLE. -Diet as tolerated. -Care per medical hospitalist team. -Discharge planning: f/u [facility] [place] [facility] 11/26/2019; call for appointment . -Will follow. Freddy Najera MD (Orthopaedic Surgery).
--- NOTE | 2019-11-22 14:05 | PATH ---
Surgical Pathology Report Patient Name: JUDE HURLEY Med. Rec. #: [id number] /Age/Gender: 1940 (Age: 79) / F Account: [id number] Location: [facility] MED-SURG Taken: 11/17/2019 Received: 11/17/2019 Reported: 11/22/2019 Physicians: Freddy Najera M.D. Specimen(s) Received BONES LEFT KNEE Clinical History Osteoarthritis left knee Final Diagnosis BONES, LEFT KNEE, TOTAL KNEE REPLACEMENT: DEGENERATIVE JOINT DISEASE. Electronically Signed Beronica Gates M.D. Gross Description Received in formalin labeled "bones left knee," is a 10.0 x 7.5 x 2.0 cm aggregate of multiple portions of bone and soft tissue. The tibial plateau measures 7.5 x 5.0 x 1.7 cm. There is a 2.5 cm in greatest dimension area of eburnation present. The remaining articular surfaces are blevins-yellow and focally granular. The underlying trabecular bone is yellow and hard. Senior Product Manager sections are submitted in one cassette, following decalcification. [facility]
== END 2019-11-20 15:00 | disposition home health service (06) | DRG 470 ==
LOC: FM/S 06:30 → FASUSAT 06:30 → EDSTATUS 08:00 → FM/S 11-18 13:10
PROVIDERS: ADMIT Orthopaedic Surgery Orthopaedic Surgery of the Spine; ATTEND Orthopaedic Surgery Orthopaedic Surgery of the Spine
PROC: 0SRD0J9 Replacement of Left Knee Joint with Synthetic Substitute, Cemented, Open Approach (ICD-10-PCS; principal; 2019-11-17 08:00)
DX: M17.12 Unilateral primary osteoarthritis, left knee (principal); I10 Essential (primary) hypertension; K21.9 Gastro-esophageal reflux disease without esophagitis; E78.5 Hyperlipidemia, unspecified; E11.9 Type 2 diabetes mellitus without complications; Z79.84 Long term (current) use of oral hypoglycemic drugs
CPT/HCPCS: 36415; 73560-TC-LT-FY; 80048; 82962; 83735; 85027; 88304-TC; 88311-TC; 94760; 97116-GP; 97163-GP